=== PATIENT | female | born 1990 | race American Indian/Alaskan Native ===

== ENCOUNTER 2016-10-07 14:17 | Emergency (ER) | payer MEDICAID ==
--- NOTE | 2016-10-07 15:14 | Emergency Department Report ---
Entered by SYDNEE FISCHER, acting as scribe for GUSTABO OROZCO NP. Chief Complaint: Abdominal Pain Stated Complaint: 5 WKS PREG BLEEDING/CRAMPING/ABD PAIN Time Seen by Provider: 10/07/16 15:03 - HPI History of Present Illness: Pt that is c/o intermittent vaginal bleeding and LLQ and RLQ abdominal cramping pain for 2 days, worse today. Visited OB yesterday and was told she was on the verge of a miscarriage. She was told to go back for a possible DNC. Denies receiving an ultrasound. Reports intermittent rectal pain. Reports nausea and vomiting. LMP 08/31/2016 A0 - ROS Review of Systems: All system are negative unless stated in HPI above. - Exam Vital Signs: Vital Signs 10/07/16 14:53 Temperature 98.4 F Pulse Rate 75 Respiratory 16 Rate Blood Pressure 133/70 O2 Sat by Pulse 100 Oximetry Physical Exam: General: well nourished, well developed, 26 year old female in no acute distress and nontoxic in appearance Abdomen: soft, non-distended. Tender to LLQ and RLQ. Back: bilateral CVA tenderness MSE screening note: Focused history and physical exam performed. Due to findings the following was ordered: See above. ED Medical Decision Making - Medical Decision Making Patient screened by provider in triage area. Labs sent in for patient. Patient to be seen by MD on main ED side. ED Disposition for MSE Condition: Stable Instructions: Abdominal Pain (ED) This documentation as recorded by the scribe,SYDNEE FISCHER,accurately reflects the service I personally performed and the decisions made by me, GUSTABO OROZCO NP.
[2016-10-07 15:38] LABS: Basophils % (Auto) 0.3 % (0.0-1.8); Eosinophils % (Auto) 1.7 % (0.0-4.3); Hematocrit 36.3 % (30.3-42.9); Hemoglobin 11.6 gm/dl (10.1-14.3); Mean Corpuscular HGB Conc 32 % (30-34); Mean Corpuscular Hemoglobin 28 pg (28-32); Mean Corpuscular Volume 87 fl (79-97); Platelet Count 237 K/mm3 (140-440); Red Blood Count 4.16 M/mm3 (3.65-5.03); Red Cell Distribution Width 15.5 % (13.2-15.2); White Blood Count 6.7 K/mm3 (4.5-11.0)
[2016-10-07 15:46] LABS: Alanine Aminotransferase 10 units/L (7-56); Albumin 4.3 g/dL (3.9-5); Albumin/Globulin Ratio 1.5 %; Alkaline Phosphatase 58 units/L (35-129); Anion Gap 18 mmol/L; BUN/Creatinine Ratio 8.33; Blood Urea Nitrogen 5 mg/dL (7-17); Calcium 9.2 mg/dL (8.4-10.2); Carbon Dioxide 22 mmol/L (22-30); Chloride 101.1 mmol/L (98-107); Glucose 85 mg/dL (65-100); Potassium 4.1 mmol/L (3.6-5.0); Sodium 137 mmol/L (137-145); Total Protein 7.2 g/dL (6.3-8.2)
[2016-10-07 16:18] LABS: Bilirubin,Urine NEG (Negative); Blood,Urine LG (Negative); Ketones,Urine 80 mg/dL (Negative); Leukocyte Esterase,Urine LG (Negative); Mucus,Urine FEW /HPF; Nitrite,Urine NEG (Negative); Protein,Urine <15 mg/dL mg/dL (Negative); Urobilinogen,Urine < 2.0 mg/dL (<2.0)
--- NOTE | 2016-10-07 17:54 | Ultrasound Report ---
FINAL REPORT PROCEDURE: US OB TRANSVAGINAL TECHNIQUE: Real-time transabdominal and transvaginal sonography of the uterus, placenta, amniotic fluid, adnexa, and fetus was performed with image documentation. Measurements were obtained to determine age/size. M-mode Doppler was used to document heartbeat. CPT 07686 and 10352 HISTORY: vaginal bleeding , pos home preg COMPARISON: No prior studies are available for comparison. FINDINGS: There are 3 gestational sacs within the endometrial canal, each with a yolk sac. No poles are seen. Mean sac diameter A equals 7 millimeters corresponding to 5 weeks 3 days gestational age. Mean sac diameter B equals 1.1 cm corresponding to 5 weeks 6 days gestational age. Mean sac diameter C equals 1 cm corresponding to 5 weeks 6 days gestational age. Endocervical canal appears thickened measuring 1.2 cm in diameter with possible hemorrhage or gestational products. There is free fluid with debris in the cul-de-sac and right adnexa. Right ovary measures 4.4 x 2.4 x 3.7 cm. Left ovary measures 2.4 x 1.4 x 4.0 cm.. Normal Doppler flow is seen in the ovaries. No adnexal masses are seen. IMPRESSION: 1. Triplet is seen but poles are not yet visualized. Estimated gestational age is between 5 weeks 3 days and 5 weeks 6 days. 2. EDC by US June 03, 2017 based upon the larger gestational sacs. 3. Continued followup quantitative beta HCG levels are recommended and repeat ultrasound in 5-7 days time is suggested to evaluate for viability.
--- NOTE | 2016-10-07 17:54 | Ultrasound Report ---
FINAL REPORT PROCEDURE: US OB \T\lt; = 14 WEEKS FETUS TECHNIQUE: Real-time transabdominal and transvaginal sonography of the uterus, placenta, amniotic fluid, adnexa, and fetus was performed with image documentation. Measurements were obtained to determine age/size. M-mode Doppler was used to document heartbeat. CPT 63117 and 13948 HISTORY: vaginal bleeding pos preg COMPARISON: No prior studies are available for comparison. FINDINGS: There are 3 gestational sacs within the endometrial canal, each with a yolk sac. No poles are seen. Mean sac diameter A equals 7 millimeters corresponding to 5 weeks 3 days gestational age. Mean sac diameter B equals 1.1 cm corresponding to 5 weeks 6 days gestational age. Mean sac diameter C equals 1 cm corresponding to 5 weeks 6 days gestational age. Endocervical canal appears thickened measuring 1.2 cm in diameter with possible hemorrhage or gestational products. There is free fluid with debris in the cul-de-sac and right adnexa. Right ovary measures 4.4 x 2.4 x 3.7 cm. Left ovary measures 2.4 x 1.4 x 4.0 cm.. Normal Doppler flow is seen in the ovaries. No adnexal masses are seen. IMPRESSION: 1. Triplet is seen but poles are not yet visualized. Estimated gestational age is between 5 weeks 3 days and 5 weeks 6 days. 2. EDC by US June 03, 2017 based upon the larger gestational sacs. 3. Continued followup quantitative beta HCG levels are recommended and repeat ultrasound in 5-7 days time is suggested to evaluate for viability.
[2016-10-07] MEDS ORDERED: TYLENOL PO ONE (23:44)
[2016-10-07] MEDS ORDERED: MACROBID PO ONE (23:44)
--- NOTE | 2016-10-08 01:05 | Emergency Department Report ---
HPI - General Chief Complaint: Abdominal Pain Time Seen by Provider: 10/07/16 15:11 - HPI HPI: This is a 26-year-old female presents emergency Department with a 1.5 week history of intermittent pelvic cramping and vaginal bleeding while . The patient had a positive home test and then went into her [facility] service at [facility] and had a confirmation positive urine test. They said she was too early for a any type of ultrasound at that time. However the patient says that the bleeding has increased over the past few days so she presents here for further evaluation. She has not taken anything for symptoms prior to presentation. With this she is . She is not currently taking vitamins. She denies any fever, nausea, discharge, dysuria. ED Past Medical Hx - Past Medical History Hx Hypertension: No Hx Congestive Heart Failure: No Hx Diabetes: No Hx Deep Vein Thrombosis: No Hx Renal Disease: No Hx Sickle Cell Disease: No Hx Headaches / Migraines: Yes Hx Seizures: No Hx Asthma: No Hx COPD: No Hx HIV: No Additional medical history: blood transfusion/anemia - Social History Smoking Status: Never Smoker Substance Use Type: None - Medications Home Medications: Home Medications Medication Instructions Recorded Confirmed Last Taken Type Pnv#21/Iron Ps& Heme Polyp/FA 1 each PO QDAY #30 tablet 02/02/14 09/21/14 17:00 Rx [Prefera Ob Tablet] 1 tab Bisacodyl [Dulcolax tab] 1 tab PO DAILY 09/21/14 09/21/14 09/19/14 23:00 History 1 tab Calcium Carbonate [Tums] 200 mg PO Q12H PRN 09/21/14 09/21/14 09/19/14 23:30 History 1 tab Ferrous Sulfate [Iron Supplement] 1 tab PO DAILY 09/21/14 09/21/14 09/14/14 09: 00 History Phenylephrine/Dm/Acetaminop/GG 1 tab PO Q4H PRN 09/21/14 09/21/14 09/20/14 19: 00 History [Tylenol Cold & Flu Severe Cplt] 1 tab Ibuprofen [Motrin 800 MG tab] 800 mg PO Q8HR PRN #30 tablet 05/14/15 Unknown Rx Nitrofurantoin Beadle/M-Cryst 100 mg PO Q12HR #14 capsule 10/08/16 Unknown Rx [Macrobid CAP] Ondansetron [Zofran Odt] 4 mg PO Q8HR PRN #10 tab.rapdis 10/08/16 Unknown Rx Vit-Fe Fumar-FA [ 1 tab PO QDAY #30 tablet 10/08/16 Unknown Rx Vitamin] ED Review of Systems ROS: Stated complaint: 5 WKS PREG BLEEDING/CRAMPING/ABD PAIN Other details as noted in HPI Comment: All other systems reviewed and negative Constitutional: denies: chills, fever Eyes: denies: eye pain, eye discharge, vision change ENT: denies: ear pain, throat pain Respiratory: denies: cough, shortness of breath, wheezing Cardiovascular: denies: chest pain, palpitations Gastrointestinal: abdominal pain. denies: nausea, vomiting Genitourinary: other (vaginal bleeding). denies: urgency, dysuria, discharge Musculoskeletal: denies: back pain, joint swelling, arthralgia Skin: denies: rash, lesions Neurological: denies: headache, weakness, paresthesias Physical Exam - Physical Exam Vital Signs: Vital Signs 10/07/16 14:53 Temperature 98.4 F Pulse Rate 75 Respiratory 16 Rate Blood Pressure 133/70 O2 Sat by Pulse 100 Oximetry Physical Exam: GENERAL: The patient is well-developed well-nourished. HEENT: Normocephalic. Atraumatic. Extraocular motions are intact. Patient has moist mucous membranes. Pupils equal reactive to light bilaterally. NECK: Supple. Trachea is midline. CHEST/LUNGS: Clear to auscultation. There is no respiratory distress noted. HEART/CARDIOVASCULAR: Regular. There is no tachycardia. There is no gallop rub or murmur. ABDOMEN: Abdomen is soft, nontender. Patient has normal bowel sounds. There is no abdominal distention. SKIN: Skin is warm and dry. NEURO: The patient is awake, alert, and oriented. The patient is cooperative. The patient has no focal neurologic deficits. The patient has normal speech. MUSCULOSKELETAL: There is no tenderness or deformity. There is no limitation range of motion. There is no evidence of acute injury. ED Course Vital Signs 10/07/16 14:53 Temperature 98.4 F Pulse Rate 75 Respiratory 16 Rate Blood Pressure 133/70 O2 Sat by Pulse 100 Oximetry ED Medical Decision Making - Lab Data Result diagrams: 10/07/16 15:18 10/07/16 15:18 - Radiology Data Radiology results: report reviewed PROCEDURE: US OB T lt; = 14 WEEKS FETUS TECHNIQUE: Real-time transabdominal and transvaginal sonography of the uterus, placenta, amniotic fluid, adnexa, and fetus was performed with image documentation. Measurements were obtained to determine age/size. M-mode Doppler was used to document heartbeat. CPT 62183 and 19428 HISTORY: vaginal bleeding pos preg COMPARISON: No prior studies are available for comparison. FINDINGS: There are 3 gestational sacs within the endometrial canal, each with a yolk sac. No poles are seen. Mean sac diameter A equals 7 millimeters corresponding to 5 weeks 3 days gestational age. Mean sac diameter B equals 1.1 cm corresponding to 5 weeks 6 days gestational age. Mean sac diameter C equals 1 cm corresponding to 5 weeks 6 days gestational age. Endocervical canal appears thickened measuring 1.2 cm in diameter with possible hemorrhage or gestational products. There is free fluid with debris in the cul-de-sac and right adnexa. Right ovary measures 4.4 x 2.4 x 3.7 cm. Left ovary measures 2.4 x 1.4 x 4.0 cm.. Normal Doppler flow is seen in the ovaries. No adnexal masses are seen. IMPRESSION: 1. Triplet is seen but poles are not yet visualized. Estimated gestational age is between 5 weeks 3 days and 5 weeks 6 days. 2. EDC by US June 03, 2017 based upon the larger gestational sacs. 3. Continued followup quantitative beta HCG levels are recommended and repeat ultrasound in 5-7 days time is suggested to evaluate for viability. - Medical Decision Making 26 year old female presents to the emergency department with complaint of some vaginal bleeding/spotting and some abdominal cramping while . Patient' s labs are mostly unremarkable. She has a mild urinary tract infection that was treated with Macrobid. A ultrasound was done that shows triplet intrauterine gestation with gestational sacs and yolk sacs but no pole as of yet. It appears consistent with early at about 5 weeks and a few days. The hormone was checked and it is about 30,000. I spoke to the patient in great detail about her imaging results, the diagnosis of threatened miscarriage, and the importance of following up with her [facility] in 4- 5 days for a repeat hormone level and repeat ultrasound to better assess the viability of her . She was started on vitamins and given Macrobid for urinary tract infection. The patient wanted something for nausea and says that diclegis does not work. She asked for Zofran. I told her of the very small percent chance of it causing side effects but the patient says that she is willing to take the risk and would like that medication. Urinalysis did show 80 ketones in the urine but there was no renal insufficiency. She will increase her oral rehydration. She will return to the ER with any worsening of her symptoms or any acute distress. She understands and agrees to plan. - Differential Diagnosis , threatened miscarriage, spontaneous miscarriage, fibroids, UTI Critical Care Time: No Critical care attestation.: If time is entered above; I have spent that time in minutes in the direct care of this critically ill patient, excluding procedure time. ED Disposition Clinical Impression: Threatened Qualifiers: Weeks of gestation: less than 8 weeks Qualified Code(s): Z3A.01 - Less than 8 weeks gestation of UTI (urinary tract infection) Qualifiers: Urinary tract infection type: acute cystitis Hematuria presence: without hematuria Qualified Code(s): N30.00 - Acute cystitis without hematuria Triplet gestation Qualifiers: Multiple gestation type: unspecified Trimester: first trimester Qualified Code( s): O30.101 - Triplet , unspecified number of placenta and unspecified number of amniotic sacs, first trimester Disposition: DC-01 TO HOME OR SELFCARE Is pt being admited?: No Condition: Stable Instructions: Threatened Miscarriage (ED), (ED), Urinary Tract Infection in Women (ED) Additional Instructions: Please follow up with [facility] in a few days for a repeat hormone level and repeat ultrasound to continue evaluating the viability of her . Until that time, you need to have pelvic rest. Try not to exert herself and do not lift anything heavier than 10 pounds. You can take Tylenol every 4 hours, using weight-based dosing, as needed for discomfort. I have prescribed you vitamins as well as an antibiotics for your urinary tract infection. Otherwise do not take any medications that are not prescribed by a physician. Prescriptions: Nitrofurantoin Beadle/M-Cryst [Macrobid CAP] 100 mg PO Q12HR #14 capsule Ondansetron [Zofran Odt] 4 mg PO Q8HR PRN #10 tab.rapdis PRN Reason: Nausea Vit-Fe Fumar-FA [ Vitamin] 1 tab PO QDAY #30 tablet Referrals: [facility] [Provider Group] - 3-5 Days Time of Disposition: 01:16
[2016-10-08] MEDS ORDERED: MACROBID ONE (01:52)
[2016-10-08] MEDS ORDERED: TYLENOL ONE (01:53)
[2016-10-08 02:04] VITALS: BP 135/74
== END 2016-10-08 02:07 | disposition home or self-care (01) ==
LOC: ED 14:17
DX: O20.0 Threatened abortion (principal); O23.41 Unspecified infection of urinary tract in pregnancy, first trimester; O30.101 Triplet pregnancy, unspecified number of placenta and unspecified number of amniotic sacs, first trimester; G43.909 Migraine, unspecified, not intractable, without status migrainosus; Z3A.01 Less than 8 weeks gestation of pregnancy
CPT/HCPCS: 36415; 76801; 76802; 76817; 80053; 81001; 84702; 84703; 85025; 86900; 86901

== ENCOUNTER 2017-07-14 14:43 | Emergency (ER) | payer SELFPAY ==
[2017-07-14 14:54] VITALS: BP 115/66
[2017-07-14] MEDS ORDERED: ASPIRIN PO ONE (14:54)
[2017-07-14 15:11] LABS: Basophils % (Auto) 0.2 % (0.0-1.8); Eosinophils # (Auto) 0.1 K/mm3 (0.0-0.4); Eosinophils % (Auto) 1.8 % (0.0-4.3); Hematocrit 33.2 % (30.3-42.9); Hemoglobin 10.8 gm/dl (10.1-14.3); Lymphocytes # (Auto) 1.9 K/mm3 (1.2-5.4); Lymphocytes % (Auto) 25.4 % (13.4-35.0); Mean Corpuscular HGB Conc 33 % (30-34); Mean Corpuscular Hemoglobin 28 pg (28-32); Mean Corpuscular Volume 87 fl (79-97); Monocytes # (Auto) 0.4 K/mm3 (0.0-0.8); Monocytes % (Auto) 5.2 % (0.0-7.3); Platelet Count 263 K/mm3 (140-440); Red Blood Count 3.83 M/mm3 (3.65-5.03); Red Cell Distribution Width 14.8 % (13.2-15.2)
[2017-07-14 15:21] LABS: BUN/Creatinine Ratio 11; Blood Urea Nitrogen 8 mg/dL (7-17); Calcium 8.6 mg/dL (8.4-10.2); Hemolysis Index 26
== END 2017-07-14 20:27 | disposition left against medical advice (07) ==
LOC: ED 14:43
DX: R06.02 Shortness of breath (principal); R07.9 Chest pain, unspecified; Z53.21 Procedure and treatment not carried out due to patient leaving prior to being seen by health care provider
CPT/HCPCS: 36415; 80048; 84484; 85025; 93005; 93010

== ENCOUNTER 2018-11-09 09:00 | Emergency (ER) | payer OTHER ==
[2018-11-09] MEDS ORDERED: BABY ASPIRIN PO ONE (09:18)
--- NOTE | 2018-11-09 09:48 | Emergency Department Report ---
ED General Adult HPI - General Chief complaint: Chest Pain Stated complaint: CHEST PAIN Time Seen by Provider: 11/09/18 09:12 Source: patient Mode of arrival: Ambulatory Limitations: No Limitations - History of Present Illness Initial comments: The patient presents to the emergency department with a chief complaint of right-sided chest pain that started yesterday. Patient states she is also having a difficult time catching her breath. Patient denies any recent trauma or injury. Patient denies smoking or use of control pills. -: Sudden Location: chest Severity scale (0 -10): 5 Quality: sharp Consistency: constant Improves with: rest Worsens with: movement Associated Symptoms: denies other symptoms Treatments Prior to Arrival: none - Related Data Home Medications Medication Instructions Recorded Confirmed Last Taken Bisacodyl [Dulcolax tab] 1 tab PO DAILY 09/21/14 09/21/14 09/19/14 23:00 1 tab Calcium Carbonate [Tums] 200 mg PO Q12H PRN 09/21/14 09/21/14 09/19/14 23:30 1 tab Ferrous Sulfate [Iron Supplement] 1 tab PO DAILY 09/21/14 09/21/14 09/14/14 09:00 Phenylephrine/Dm/Acetaminop/GG 1 tab PO Q4H PRN 09/21/14 09/21/14 09/20/14 19:00 [Tylenol Cold & Flu Severe Cplt] 1 tab Previous Rx's Medication Instructions Recorded Last Taken Type Pnv 21/Iron Ps,Heme Ppep/Folic 1 each PO QDAY #30 tablet 02/02/14 09/20/14 17:00 Rx [Prefera Ob Tablet] 1 tab Ibuprofen [Motrin 800 MG tab] 800 mg PO Q8HR PRN #30 tablet 05/14/15 Unknown Rx Nitrofurantoin Dawson/M-Cryst 100 mg PO Q12HR #14 capsule 10/08/16 Unknown Rx [Macrobid CAP] Ondansetron [Zofran Odt] 4 mg PO Q8HR PRN #10 tab.rapdis 10/08/16 Unknown Rx Vit-Fe Fumar-FA [ 1 tab PO QDAY #30 tablet 10/08/16 Unknown Rx Vitamin] Naproxen [Naprosyn] 500 mg PO BID PRN #20 tablet 11/09/18 Unknown Rx Allergies Allergy/AdvReac Type Severity Reaction Status Date / Time No Known Allergies Allergy Verified 11/09/18 09:00 ED Review of Systems ROS: Stated complaint: CHEST PAIN Other details as noted in HPI Comment: All other systems reviewed and negative Constitutional: denies: chills, fever Eyes: denies: eye pain, eye discharge, vision change ENT: denies: ear pain, throat pain Respiratory: shortness of breath. denies: cough, wheezing Cardiovascular: chest pain. denies: palpitations Endocrine: no symptoms reported Gastrointestinal: denies: abdominal pain, nausea, diarrhea Genitourinary: denies: urgency, dysuria, discharge Musculoskeletal: denies: back pain, joint swelling, arthralgia Skin: denies: rash, lesions Neurological: denies: headache, weakness, paresthesias Psychiatric: denies: anxiety, depression Hematological/Lymphatic: denies: easy bleeding, easy bruising ED Past Medical Hx - Past Medical History Hx Hypertension: No Hx Congestive Heart Failure: No Hx Diabetes: No Hx Deep Vein Thrombosis: No Hx Renal Disease: No Hx Sickle Cell Disease: No Hx Headaches / Migraines: Yes Hx Seizures: No Hx Asthma: No Hx COPD: No Hx HIV: No Additional medical history: iron def, anemia - Surgical History Past Surgical History?: No - Social History Smoking Status: Never Smoker - Medications Home Medications: Home Medications Medication Instructions Recorded Confirmed Last Taken Type Pnv 21/Iron Ps,Heme Ppep/Folic 1 each PO QDAY #30 tablet 02/02/14 09/21/14 09/20/14 17:00 Rx [Prefera Ob Tablet] 1 tab Bisacodyl [Dulcolax tab] 1 tab PO DAILY 09/21/14 09/21/14 09/19/14 23:00 History 1 tab Calcium Carbonate [Tums] 200 mg PO Q12H PRN 09/21/14 09/21/14 09/19/14 23:30 History 1 tab Ferrous Sulfate [Iron Supplement] 1 tab PO DAILY 09/21/14 09/21/14 09/14/14 09:00 History Phenylephrine/Dm/Acetaminop/GG 1 tab PO Q4H PRN 09/21/14 09/21/14 09/20/14 19:00 History [Tylenol Cold & Flu Severe Cplt] 1 tab Ibuprofen [Motrin 800 MG tab] 800 mg PO Q8HR PRN #30 tablet 05/14/15 Unknown Rx Nitrofurantoin Dawson/M-Cryst 100 mg PO Q12HR #14 capsule 10/08/16 Unknown Rx [Macrobid CAP] Ondansetron [Zofran Odt] 4 mg PO Q8HR PRN #10 tab.rapdis 10/08/16 Unknown Rx Vit-Fe Fumar-FA [ 1 tab PO QDAY #30 tablet 10/08/16 Unknown Rx Vitamin] Naproxen [Naprosyn] 500 mg PO BID PRN #20 tablet 11/09/18 Unknown Rx ED Physical Exam - General Limitations: No Limitations General appearance: alert, in no apparent distress - Head Head exam: Present: atraumatic, normocephalic - Eye Eye exam: Present: normal appearance, PERRL, EOMI - ENT ENT exam: Present: mucous membranes moist - Neck Neck exam: Present: normal inspection - Respiratory Respiratory exam: Present: normal lung sounds bilaterally, chest wall tenderness (right side). Absent: respiratory distress - Cardiovascular Cardiovascular Exam: Present: regular rate, normal rhythm. Absent: systolic murmur, diastolic murmur, rubs, gallop - GI/Abdominal GI/Abdominal exam: Present: soft, normal bowel sounds. Absent: distended, tenderness - Extremities Exam Extremities exam: Present: normal inspection - Back Exam Back exam: Present: normal inspection - Neurological Exam Neurological exam: Present: alert, oriented X3, CN II-XII intact. Absent: motor sensory deficit - Psychiatric Psychiatric exam: Present: normal affect, normal mood - Skin Skin exam: Present: warm, dry, intact, normal color. Absent: rash ED Course Vital Signs 11/09/18 11/09/18 11/09/18 09:01 09:20 10:45 Temperature 98.1 F Pulse Rate 70 73 Respiratory 18 16 13 Rate Blood Pressure 162/83 Blood Pressure 122/74 [Left] O2 Sat by Pulse 100 100 Oximetry ED Medical Decision Making - Lab Data Result diagrams: 11/09/18 09:30 11/09/18 09:30 Lab Results 11/09/18 11/09/18 11/09/18 Range/Units 09:30 09:30 09:30 WBC 6.3 (4.5-11.0) K/mm3 RBC 4.10 (3.65-5.03) M/mm3 Hgb 11.9 (10.1-14.3) gm/dl Hct 35.2 (30.3-42.9) % MCV 86 (79-97) fl MCH 29 (28-32) pg MCHC 34 (30-34) % RDW 14.5 (13.2-15.2) % Plt Count 269 (140-440) K/mm3 Lymph % (Auto) 27.3 (13.4-35.0) % Dawson % (Auto) 5.3 (0.0-7.3) % Eos % (Auto) 1.6 (0.0-4.3) % Baso % (Auto) 0.7 (0.0-1.8) % Lymph # 1.7 (1.2-5.4) K/mm3 Dawson # 0.3 (0.0-0.8) K/mm3 Eos # 0.1 (0.0-0.4) K/mm3 Baso # 0.0 (0.0-0.1) K/mm3 Seg Neutrophils % 65.1 (40.0-70.0) % Seg Neutrophils # 4.1 (1.8-7.7) K/mm3 PT 12.7 (12.2-14.9) Sec. INR 0.98 (0.87-1.13) APTT 29.4 (24.2-36.6) Sec. D-Dimer < 135.00 (0-234) ng/mlDDU Sodium (137-145) mmol/L Potassium (3.6-5.0) mmol/L Chloride (98-107) mmol/L Carbon Dioxide (22-30) mmol/L Anion Gap mmol/L BUN (7-17) mg/dL Creatinine (0.7-1.2) mg/dL Estimated GFR ml/min BUN/Creatinine Ratio % Glucose (65-100) mg/dL Calcium (8.4-10.2) mg/dL Total Bilirubin (0.1-1.2) mg/dL AST (5-40) units/L ALT (7-56) units/L Alkaline Phosphatase (35-129) units/L Troponin T (0.00-0.029) ng/mL Total Protein (6.3-8.2) g/dL Albumin (3.9-5) g/dL Albumin/Globulin Ratio % HCG, Qual Negative (Negative) 11/09/18 11/09/18 Range/Units 09:30 11:21 WBC (4.5-11.0) K/mm3 RBC (3.65-5.03) M/mm3 Hgb (10.1-14.3) gm/dl Hct (30.3-42.9) % MCV (79-97) fl MCH (28-32) pg MCHC (30-34) % RDW (13.2-15.2) % Plt Count (140-440) K/mm3 Lymph % (Auto) (13.4-35.0) % Dawson % (Auto) (0.0-7.3) % Eos % (Auto) (0.0-4.3) % Baso % (Auto) (0.0-1.8) % Lymph # (1.2-5.4) K/mm3 Dawson # (0.0-0.8) K/mm3 Eos # (0.0-0.4) K/mm3 Baso # (0.0-0.1) K/mm3 Seg Neutrophils % (40.0-70.0) % Seg Neutrophils # (1.8-7.7) K/mm3 PT (12.2-14.9) Sec. INR (0.87-1.13) APTT (24.2-36.6) Sec. D-Dimer (0-234) ng/mlDDU Sodium 138 (137-145) mmol/L Potassium 3.6 (3.6-5.0) mmol/L Chloride 102.9 (98-107) mmol/L Carbon Dioxide 22 (22-30) mmol/L Anion Gap 17 mmol/L BUN 7 (7-17) mg/dL Creatinine 0.8 (0.7-1.2) mg/dL Estimated GFR > 60 ml/min BUN/Creatinine Ratio 9 % Glucose 79 (65-100) mg/dL Calcium 9.8 (8.4-10.2) mg/dL Total Bilirubin 0.40 (0.1-1.2) mg/dL AST 34 (5-40) units/L ALT 24 (7-56) units/L Alkaline Phosphatase 92 (35-129) units/L Troponin T < 0.010 < 0.010 (0.00-0.029) ng/mL Total Protein 8.4 H (6.3-8.2) g/dL Albumin 4.4 (3.9-5) g/dL Albumin/Globulin Ratio 1.1 % HCG, Qual (Negative) - EKG Data -: EKG Interpreted by Me EKG shows normal: sinus rhythm Rate: normal - Radiology Data Radiology results: report reviewed - Medical Decision Making Discussed results with patient Patient states her symptoms completely resolved with naproxen Critical care attestation.: If time is entered above; I have spent that time in minutes in the direct care of this critically ill patient, excluding procedure time. ED Disposition Clinical Impression: Nonspecific chest pain Disposition: DC-01 TO HOME OR SELFCARE Is pt being admited?: No Does the pt Need Aspirin: No Condition: Stable Instructions: Noncardiac Chest Pain (ED) Additional Instructions: return if worse Referrals: PRIMARY CARE, [Referring] - 3-5 Days [facility] [Provider Group] - 3-5 Days [facility] [Provider Group] - 3-5 Days Time of Disposition: 12:08
[2018-11-09] MEDS ORDERED: NAPROSYN PO ONE (10:00)
--- NOTE | 2018-11-09 10:04 | XRay Report ---
CHEST 1 VIEW INDICATION: Chest Pain. COMPARISON: FINDINGS: Support devices: None. Heart: Within normal limits. Lungs/Pleura: No acute air space or interstitial disease. Additional findings: None. IMPRESSION: No acute findings. Signer Name: Omar Blevins Jr, MD Signed: 11/09/2018 9:59 AM Workstation Name: [id number]
[2018-11-09 10:07] LABS: Basophils % (Auto) 0.7 % (0.0-1.8); Eosinophils # (Auto) 0.1 K/mm3 (0.0-0.4); Eosinophils % (Auto) 1.6 % (0.0-4.3); Hematocrit 35.2 % (30.3-42.9); Hemoglobin 11.9 gm/dl (10.1-14.3); Lymphocytes # (Auto) 1.7 K/mm3 (1.2-5.4); Lymphocytes % (Auto) 27.3 % (13.4-35.0); Mean Corpuscular HGB Conc 34 % (30-34); Mean Corpuscular Volume 86 fl (79-97); Monocytes # (Auto) 0.3 K/mm3 (0.0-0.8); Monocytes % (Auto) 5.3 % (0.0-7.3); Platelet Count 269 K/mm3 (140-440); Red Cell Distribution Width 14.5 % (13.2-15.2)
[2018-11-09 10:22] LABS: INR 0.98 (0.87-1.13)
[2018-11-09 10:23] LABS: Partial Thromboplastin Time 29.4 Sec. (24.2-36.6)
[2018-11-09 10:25] LABS: Alanine Aminotransferase 24 units/L (7-56); Albumin 4.4 g/dL (3.9-5); BUN/Creatinine Ratio 9; Blood Urea Nitrogen 7 mg/dL (7-17); Calcium 9.8 mg/dL (8.4-10.2); Hemolysis Index 12
[2018-11-09 12:23] VITALS: BP 120/71
== END 2018-11-09 12:22 | disposition home or self-care (01) ==
LOC: ED 09:00
DX: R07.89 Other chest pain (principal); R06.02 Shortness of breath; G43.909 Migraine, unspecified, not intractable, without status migrainosus; Z79.899 Other long term (current) drug therapy
CPT/HCPCS: 36415; 71045; 80053; 80162; 84484; 84703; 85025; 85379; 85610; 85730; 93005; 93010

== ENCOUNTER 2020-07-14 16:10 | Inpatient (IN) | payer MEDICAID ==
[2020-07-14] MEDS ORDERED: LACTATED RINGERS 1,000 ML IV ONE (16:31)
[2020-07-14] MEDS ORDERED: TERBUTALINE 1 MG/1 ML INJ SUB-Q SCH (17:00)
[2020-07-14 17:12] LABS: Bilirubin,Urine NEG (Negative); Blood,Urine NEG (Negative); Color,Urine Yellow (Yellow); Mucus,Urine 3+ /HPF; Urobilinogen,Urine < 2.0 mg/dL (<2.0)
[2020-07-14] MEDS: LACTATED RINGERS 1,000 ML IV SCH ×2 (17:22→19:04)
[2020-07-14 17:41] LABS: Hemoglobin 8.6 gm/dl (10.1-14.3); Mean Corpuscular HGB Conc 32 % (30-34); Mean Corpuscular Volume 72 fl (79-97); Platelet Count 300 K/mm3 (140-440); Red Blood Count 3.76 M/mm3 (3.65-5.03); Red Cell Distribution Width 18.2 % (13.2-15.2)
[2020-07-14 18:01] LABS: Alanine Aminotransferase 8 units/L (7-56); Uric Acid 4.9 mg/dL (3.5-7.6)
[2020-07-14] MEDS ORDERED: DOCUSATE SODIUM 100 MG CAP PO PRN (19:58)
[2020-07-14] MEDS ORDERED: ACETAMINOPHEN 325 MG TAB PO PRN (19:58)
[2020-07-14] MEDS ORDERED: ONDANSETRON 4 MG/2 ML INJ IV PRN (19:58)
[2020-07-14] MEDS ORDERED: LIDOCAINE-MPF (1%) 10 MG/1 ML VIAL 5 ML INFILTRATI ONE (20:02)
[2020-07-14] MEDS ORDERED: cefTRIAXone/NS 1 GM/50 ML 1 GM/50 ML BAG IV ONE (20:05)
[2020-07-14] MEDS ORDERED: SODIUM CHLORIDE 0.9% 1000 ML 1,000 ML IV PRN (20:06)
--- NOTE | 2020-07-14 20:09 | History and Physical Report ---
History of Present Illness Date of examination: 07/14/20 Chief complaint: r/o labor, elevated blood pressures History of present illness: 29 yo c/b anemia and obesity presenting from clinic for evaluation of r/o labor with contractions every 7 minutes, found to have elevated BPs in cl inic. No prior hx of PIH. No current PIH symptoms. +FM. No vaginal bleeding or LOF. 2/60/-2 cm in clinic Past History Past Medical History: other (anemia) Past Surgical History: no surgical history Family/Genetic History: diabetes, heart disease Social history: no significant social history - Obstetrical History : 5 Para: 3 Hx # Term Pregnancies: 3 Induced : 1 Number of Living Children: 3 Medications and Allergies Allergies Allergy/AdvReac Type Severity Reaction Status Date / Time No Known Allergies Allergy Verified 11/09/18 09:00 Home Medications Medication Instructions Recorded Confirmed Last Taken Type Pnv 21/Iron Ps,Heme Ppep/Folic 1 each PO QDAY #30 tablet 02/02/14 09/21/14 09/20/14 17:00 Rx [Prefera Ob Tablet] 1 tab Calcium Carbonate [Tums] 200 mg PO Q12H PRN 09/21/14 09/21/14 09/19/14 23:30 History 1 tab Ferrous Sulfate [Iron Supplement] 1 tab PO DAILY 09/21/14 09/21/14 09/14/14 09:00 History Phenylephrine/Dm/Acetaminop/GG 1 tab PO Q4H PRN 09/21/14 09/21/14 09/20/14 19:00 History [Tylenol Cold & Flu Severe Cplt] 1 tab bisacodyL [Dulcolax tab] 1 tab PO DAILY 09/21/14 09/21/14 09/19/14 23:00 History 1 tab Ibuprofen [Motrin 800 MG tab] 800 mg PO Q8HR PRN #30 tablet 05/14/15 Unknown Rx Nitrofurantoin Schleicher/M-Cryst 100 mg PO Q12HR #14 capsule 10/08/16 Unknown Rx [Macrobid CAP] Ondansetron [Zofran Odt] 4 mg PO Q8HR PRN #10 tab.rapdis 10/08/16 Unknown Rx Vit-Fe Fumar-FA [ 1 tab PO QDAY #30 tablet 10/08/16 Unknown Rx Vitamin] Naproxen [Naprosyn] 500 mg PO BID PRN #20 tablet 11/09/18 Unknown Rx Active Meds: Active Medications Acetaminophen (Acetaminophen 325 Mg Tab) 650 mg PO Q4H PRN PRN Reason: Pain MILD(1-3)/Fever >100.5/MURGUIA Ceftriaxone Sodium (Ceftriaxone 1 Gm Inj) 1 gm IM ONCE ONE; Protocol Stop: 07/14/20 20:04 Docusate Sodium (Docusate Sodium 100 Mg Cap) 100 mg PO Q12H PRN PRN Reason: Constipation Lactated Ringer's (Lactated Ringers) 1,000 mls @ 125 mls/hr IV DIRECT ANDRE Last Admin: 07/14/20 19:04 Dose: 125 mls/hr Documented by: Labetalol HCl (Labetalol 100 Mg Tab) 100 mg PO BID ANDRE Lidocaine (Lidocaine-Mpf (1%) 10 Mg/1 Ml Vial 5 Ml) 2 ml INFILTRATI ONCE ONE Stop: 07/14/20 20:03 Multivitamins/Iron/Calcium ( Rau22-Hf Fumarate-Folic Acid Vit Tab) 1 each PO QDAY [facility] Ondansetron HCl (Ondansetron 4 Mg/2 Ml Inj) 4 mg IV Q6H PRN PRN Reason: Nausea And Vomiting Terbutaline Sulfate (Terbutaline 1 Mg/1 Ml Inj) 0.25 mg SUB-Q Q20MIN [facility] Stop: 07/16/20 17:01 Last Admin: 07/14/20 19:40 Dose: 0.25 mg Documented by: Review of Systems All systems: negative (expect HPI) - Vital Signs Vital signs: Vital Signs Pulse BP 76 130/85 07/14/20 16:45 07/14/20 16:45 Temp Pulse Resp BP Pulse Ox 98.9 F 72 20 137/72 100 07/14/20 16:47 07/14/20 20:01 07/14/20 16:47 07/14/20 19:59 07/14/20 20:01 - Physical Exam Abdomen: Positive: normal appearance, normal bowel sounds, other (gravid) - Obstetrical FHR: category 1 Uterine Contraction Monitor Mode: External Cervical Dilatation: 2 Uterine Contraction Pattern: Irregular Results Result Diagrams: 07/14/20 Unknown 07/14/20 Unknown Abnormal lab results 07/14/20 07/14/20 07/14/20 Range/Units Unknown Unknown Unknown Hgb 8.6 L (10.1-14.3) gm/dl Hct 27.0 L (30.3-42.9) % MCV 72 L (79-97) fl MCH 23 L (28-32) pg RDW 18.2 H (13.2-15.2) % Lactate Dehydrogenase 271 H (91-180) units/L U Epithel Cells (Auto) 19.0 H (0-13.0) /HPF All other labs normal. Assessment and Plan - Patient Problems (1) Elevated blood pressure affecting in third trimester, antepartum Current Visit: Yes Status: Acute Plan to address problem: --PIH labs overall wnl, elevated but not severe range BPs --Admit for OBS for 24H TP --start labetolol 100mg BID (2) Anemia Current Visit: Yes Status: Acute Qualifiers: Anemia type: iron deficiency Plan to address problem: Iron BID (3) Cystitis Current Visit: Yes Status: Acute Plan to address problem: Ceftriaxone 1g IV x 1 for leuks in urine, current asx
[2020-07-14] MEDS ORDERED: CALCIUM CARBONATE 500 MG TAB CHEW PO PRN (21:07)
[2020-07-15] MEDS: LACTATED RINGERS 1,000 ML IV SCH (03:43)
[2020-07-15] MEDS: FERROUS SULFATE 325 MG TAB PO SCH ×2 (09:03→21:08)
--- NOTE | 2020-07-15 09:22 | Progress Note ---
Subjective - Subjective Date of service: 07/15/20 Objective - Vital Signs Vital Signs: Vital Signs - 12hr 07/14/20 07/14/20 07/15/20 23:31 23:50 00:20 Temperature Pulse Rate 73 83 74 Respiratory Rate Blood Pressure 126/73 139/81 144/66 Blood Pressure [Right] O2 Sat by Pulse Oximetry 07/15/20 07/15/20 07/15/20 00:50 01:21 01:50 Temperature Pulse Rate 62 74 59 L Respiratory Rate Blood Pressure 126/70 108/55 101/58 Blood Pressure [Right] O2 Sat by Pulse Oximetry 07/15/20 07/15/20 07/15/20 02:21 02:50 03:45 Temperature Pulse Rate 73 57 L 84 Respiratory Rate Blood Pressure 132/80 111/55 122/80 Blood Pressure [Right] O2 Sat by Pulse Oximetry 07/15/20 07/15/20 07/15/20 03:52 04:50 05:21 Temperature Pulse Rate 74 82 85 Respiratory Rate Blood Pressure 123/69 141/81 153/81 Blood Pressure [Right] O2 Sat by Pulse Oximetry 07/15/20 07/15/20 07/15/20 05:50 06:20 06:57 Temperature 98.3 F Pulse Rate 72 67 77 Respiratory 16 Rate Blood Pressure 125/76 117/69 138/80 Blood Pressure 138/80 [Right] O2 Sat by Pulse 99 Oximetry 07/15/20 07/15/20 07/15/20 07:00 07:05 07:10 Temperature Pulse Rate 76 63 72 Respiratory Rate Blood Pressure Blood Pressure [Right] O2 Sat by Pulse 98 98 98 Oximetry 07/15/20 07/15/20 07/15/20 07:15 07:20 07:25 Temperature Pulse Rate 68 64 92 H Respiratory Rate Blood Pressure 137/76 Blood Pressure [Right] O2 Sat by Pulse 99 99 99 Oximetry 07/15/20 07/15/20 07/15/20 07:30 07:35 07:40 Temperature Pulse Rate 85 76 68 Respiratory Rate Blood Pressure Blood Pressure [Right] O2 Sat by Pulse 98 99 100 Oximetry 07/15/20 07/15/20 07/15/20 07:45 07:50 07:51 Temperature Pulse Rate 63 71 78 Respiratory Rate Blood Pressure 136/83 Blood Pressure [Right] O2 Sat by Pulse 99 99 Oximetry 07/15/20 07/15/20 07/15/20 07:55 08:00 08:05 Temperature Pulse Rate 62 67 57 L Respiratory Rate Blood Pressure Blood Pressure [Right] O2 Sat by Pulse 99 99 98 Oximetry 07/15/20 07/15/20 07/15/20 08:10 08:15 08:20 Temperature Pulse Rate 74 61 64 Respiratory Rate Blood Pressure Blood Pressure [Right] O2 Sat by Pulse 98 99 99 Oximetry 07/15/20 07/15/20 07/15/20 08:21 08:25 08:30 Temperature Pulse Rate 64 61 65 Respiratory Rate Blood Pressure 121/58 Blood Pressure [Right] O2 Sat by Pulse 99 98 Oximetry 07/15/20 07/15/20 07/15/20 08:35 08:40 08:45 Temperature Pulse Rate 80 64 67 Respiratory Rate Blood Pressure Blood Pressure [Right] O2 Sat by Pulse 99 98 98 Oximetry 07/15/20 07/15/20 07/15/20 08:50 08:52 08:55 Temperature Pulse Rate 67 79 74 Respiratory Rate Blood Pressure 144/79 Blood Pressure [Right] O2 Sat by Pulse 98 97 Oximetry 07/15/20 07/15/20 07/15/20 09:00 09:04 09:05 Temperature Pulse Rate 89 64 90 Respiratory Rate Blood Pressure 131/62 131/62 Blood Pressure [Right] O2 Sat by Pulse 100 99 Oximetry 07/15/20 07/15/20 07/15/20 09:10 09:15 09:20 Temperature Pulse Rate 65 63 70 Respiratory Rate Blood Pressure Blood Pressure [Right] O2 Sat by Pulse 99 99 99 Oximetry - Labs Labs: Abnormal Labs 07/14/20 07/14/20 07/14/20 Unknown Unknown Unknown Hgb 8.6 L Hct 27.0 L MCV 72 L MCH 23 L RDW 18.2 H Lactate Dehydrogenase 271 H U Epithel Cells (Auto) 19.0 H Laboratory Results - last 24 hr 07/14/20 07/14/20 07/14/20 20:31 20:31 20:31 WBC RBC Hgb Hct MCV MCH MCHC RDW Plt Count Creatinine Estimated GFR Uric Acid AST ALT Lactate Dehydrogenase Urine Color Urine Turbidity Urine pH Ur Specific [place] Urine Protein Urine Glucose (UA) Urine Ketones Urine Blood Urine Nitrite Urine Bilirubin Urine Urobilinogen Ur Leukocyte Esterase Urine WBC (Auto) Urine RBC (Auto) U Epithel Cells (Auto) Urine Mucus Syphilis IgG Antibody Nonreactive Hep Bs Antigen HIV 1&2 Antibody Rapid HIV P24 Antigen Rubella IgG Antibody Immune Blood Type O POSITIVE Antibody Screen Negative 07/14/20 07/14/20 07/14/20 20:31 20:31 Unknown WBC RBC Hgb Hct MCV MCH MCHC RDW Plt Count Creatinine Estimated GFR Uric Acid AST ALT Lactate Dehydrogenase Urine Color Yellow Urine Turbidity Cloudy Urine pH 6.0 Ur Specific [place] 1.024 Urine Protein 100 mg/dl Urine Glucose (UA) Neg Urine Ketones Neg Urine Blood Neg Urine Nitrite Neg Urine Bilirubin Neg Urine Urobilinogen < 2.0 Ur Leukocyte Esterase Mod Urine WBC (Auto) 4.0 Urine RBC (Auto) 1.0 U Epithel Cells (Auto) 19.0 H Urine Mucus 3+ Syphilis IgG Antibody Hep Bs Antigen Non-reactive HIV 1&2 Antibody Rapid Non react HIV P24 Antigen Non react Rubella IgG Antibody Blood Type Antibody Screen 07/14/20 07/14/20 Unknown Unknown WBC 9.0 RBC 3.76 Hgb 8.6 L Hct 27.0 L MCV 72 L MCH 23 L MCHC 32 RDW 18.2 H Plt Count 300 Creatinine 0.7 Estimated GFR > 60 Uric Acid 4.9 AST 20 ALT 8 Lactate Dehydrogenase 271 H Urine Color Urine Turbidity Urine pH Ur Specific [place] Urine Protein Urine Glucose (UA) Urine Ketones Urine Blood Urine Nitrite Urine Bilirubin Urine Urobilinogen Ur Leukocyte Esterase Urine WBC (Auto) Urine RBC (Auto) U Epithel Cells (Auto) Urine Mucus Syphilis IgG Antibody Hep Bs Antigen HIV 1&2 Antibody Rapid HIV P24 Antigen Rubella IgG Antibody Blood Type Antibody Screen
--- NOTE | 2020-07-15 09:48 | Progress Note ---
Assessment and Plan A: IUP@ 35.5wks with PIH Asymptomatic anemia Mod leuk in urine P: Continue monitoring b/ps [facility] consult Continue 24 hr urine jana Awaiting urine c&s Ferrous Sulfate rx Subjective - Subjective Date of service: 07/15/20 Principal diagnosis: IUP@ 35.5 wks with PIH Patient reports: movement normal, other (Denies grigsby, visual problems, or epigastric pain) Objective - Vital Signs Vital Signs: Vital Signs - 12hr 07/14/20 07/14/20 07/15/20 23:31 23:50 00:20 Temperature Pulse Rate 73 83 74 Respiratory Rate Blood Pressure 126/73 139/81 144/66 Blood Pressure [Right] O2 Sat by Pulse Oximetry 07/15/20 07/15/20 07/15/20 00:50 01:21 01:50 Temperature Pulse Rate 62 74 59 L Respiratory Rate Blood Pressure 126/70 108/55 101/58 Blood Pressure [Right] O2 Sat by Pulse Oximetry 07/15/20 07/15/20 07/15/20 02:21 02:50 03:45 Temperature Pulse Rate 73 57 L 84 Respiratory Rate Blood Pressure 132/80 111/55 122/80 Blood Pressure [Right] O2 Sat by Pulse Oximetry 07/15/20 07/15/20 07/15/20 03:52 04:50 05:21 Temperature Pulse Rate 74 82 85 Respiratory Rate Blood Pressure 123/69 141/81 153/81 Blood Pressure [Right] O2 Sat by Pulse Oximetry 07/15/20 07/15/20 07/15/20 05:50 06:20 06:57 Temperature 98.3 F Pulse Rate 72 67 77 Respiratory 16 Rate Blood Pressure 125/76 117/69 138/80 Blood Pressure 138/80 [Right] O2 Sat by Pulse 99 Oximetry 07/15/20 07/15/20 07/15/20 07:00 07:05 07:10 Temperature Pulse Rate 76 63 72 Respiratory Rate Blood Pressure Blood Pressure [Right] O2 Sat by Pulse 98 98 98 Oximetry 07/15/20 07/15/20 07/15/20 07:15 07:20 07:25 Temperature Pulse Rate 68 64 92 H Respiratory Rate Blood Pressure 137/76 Blood Pressure [Right] O2 Sat by Pulse 99 99 99 Oximetry 07/15/20 07/15/20 07/15/20 07:30 07:35 07:40 Temperature Pulse Rate 85 76 68 Respiratory Rate Blood Pressure Blood Pressure [Right] O2 Sat by Pulse 98 99 100 Oximetry 07/15/20 07/15/20 07/15/20 07:45 07:50 07:51 Temperature Pulse Rate 63 71 78 Respiratory Rate Blood Pressure 136/83 Blood Pressure [Right] O2 Sat by Pulse 99 99 Oximetry 07/15/20 07/15/20 07/15/20 07:55 08:00 08:05 Temperature Pulse Rate 62 67 57 L Respiratory Rate Blood Pressure Blood Pressure [Right] O2 Sat by Pulse 99 99 98 Oximetry 07/15/20 07/15/20 07/15/20 08:10 08:15 08:20 Temperature Pulse Rate 74 61 64 Respiratory Rate Blood Pressure Blood Pressure [Right] O2 Sat by Pulse 98 99 99 Oximetry 07/15/20 07/15/20 07/15/20 08:21 08:25 08:30 Temperature Pulse Rate 64 61 65 Respiratory Rate Blood Pressure 121/58 Blood Pressure [Right] O2 Sat by Pulse 99 98 Oximetry 07/15/20 07/15/20 07/15/20 08:35 08:40 08:45 Temperature Pulse Rate 80 64 67 Respiratory Rate Blood Pressure Blood Pressure [Right] O2 Sat by Pulse 99 98 98 Oximetry 07/15/20 07/15/20 07/15/20 08:50 08:52 08:55 Temperature Pulse Rate 67 79 74 Respiratory Rate Blood Pressure 144/79 Blood Pressure [Right] O2 Sat by Pulse 98 97 Oximetry 07/15/20 07/15/20 07/15/20 09:00 09:04 09:05 Temperature Pulse Rate 89 64 90 Respiratory Rate Blood Pressure 131/62 131/62 Blood Pressure [Right] O2 Sat by Pulse 100 99 Oximetry 07/15/20 07/15/20 07/15/20 09:10 09:15 09:20 Temperature Pulse Rate 65 63 70 Respiratory Rate Blood Pressure Blood Pressure [Right] O2 Sat by Pulse 99 99 99 Oximetry 07/15/20 07/15/20 07/15/20 09:25 09:37 09:42 Temperature Pulse Rate 72 69 Respiratory Rate Blood Pressure Blood Pressure [Right] O2 Sat by Pulse 99 87 99 Oximetry - Exam Breasts: normal Abdomen: Present: normal appearance, soft, normal bowel sounds Vulva: both: normal Uterus: Present: normal FHR: auscultation normal, category 1 Uterine Contraction Monitor Mode: External Uterine Contraction Frequency (min): irreg with irritabil Uterine Contraction Pattern: Irregular Uterine Tone Measurement Phase: Resting Uterine Contraction Intensity: Mild Extremities: normal - Labs Labs: Abnormal Labs 07/14/20 07/14/20 07/14/20 Unknown Unknown Unknown Hgb 8.6 L Hct 27.0 L MCV 72 L MCH 23 L RDW 18.2 H Lactate Dehydrogenase 271 H U Epithel Cells (Auto) 19.0 H Laboratory Results - last 24 hr 07/14/20 07/14/20 07/14/20 20:31 20:31 20:31 WBC RBC Hgb Hct MCV MCH MCHC RDW Plt Count Creatinine Estimated GFR Uric Acid AST ALT Lactate Dehydrogenase Urine Color Urine Turbidity Urine pH Ur Specific [place] Urine Protein Urine Glucose (UA) Urine Ketones Urine Blood Urine Nitrite Urine Bilirubin Urine Urobilinogen Ur Leukocyte Esterase Urine WBC (Auto) Urine RBC (Auto) U Epithel Cells (Auto) Urine Mucus Syphilis IgG Antibody Nonreactive Hep Bs Antigen HIV 1&2 Antibody Rapid HIV P24 Antigen Rubella IgG Antibody Immune Blood Type O POSITIVE Antibody Screen Negative 07/14/20 07/14/20 07/14/20 20:31 20:31 Unknown WBC RBC Hgb Hct MCV MCH MCHC RDW Plt Count Creatinine Estimated GFR Uric Acid AST ALT Lactate Dehydrogenase Urine Color Yellow Urine Turbidity Cloudy Urine pH 6.0 Ur Specific [place] 1.024 Urine Protein 100 mg/dl Urine Glucose (UA) Neg Urine Ketones Neg Urine Blood Neg Urine Nitrite Neg Urine Bilirubin Neg Urine Urobilinogen < 2.0 Ur Leukocyte Esterase Mod Urine WBC (Auto) 4.0 Urine RBC (Auto) 1.0 U Epithel Cells (Auto) 19.0 H Urine Mucus 3+ Syphilis IgG Antibody Hep Bs Antigen Non-reactive HIV 1&2 Antibody Rapid Non react HIV P24 Antigen Non react Rubella IgG Antibody Blood Type Antibody Screen 07/14/20 07/14/20 Unknown Unknown WBC 9.0 RBC 3.76 Hgb 8.6 L Hct 27.0 L MCV 72 L MCH 23 L MCHC 32 RDW 18.2 H Plt Count 300 Creatinine 0.7 Estimated GFR > 60 Uric Acid 4.9 AST 20 ALT 8 Lactate Dehydrogenase 271 H Urine Color Urine Turbidity Urine pH Ur Specific [place] Urine Protein Urine Glucose (UA) Urine Ketones Urine Blood Urine Nitrite Urine Bilirubin Urine Urobilinogen Ur Leukocyte Esterase Urine WBC (Auto) Urine RBC (Auto) U Epithel Cells (Auto) Urine Mucus Syphilis IgG Antibody Hep Bs Antigen HIV 1&2 Antibody Rapid HIV P24 Antigen Rubella IgG Antibody Blood Type Antibody Screen
[2020-07-15] MEDS ORDERED: PRENATAL VIT27-FE FUMARATE-FOLIC ACID VIT TAB PO SCH (10:00)
[2020-07-15] MEDS ORDERED: FERROUS SULFATE 325 MG TAB PO SCH (10:00)
[2020-07-15] MEDS ORDERED: BETAMET ACET/BETAMET NA PH 6 MG/ML INJ 5 ML MDV IM SCH (11:00)
--- NOTE | 2020-07-15 14:12 | Event Note ---
Date: 07/15/20 Pt resting quietly in bed and denies complaints. She admits to adq FM. VSS, SVE unchanged at /-3. FHR 142 with mod inez, pos accels and no decels. Uterine irritability noted, but no uc at this time. Pt was seen by [facility]. Awaiting report. Dr Eduardo was notified of pt's status.
--- NOTE | 2020-07-15 19:28 | Consultation ---
History of Present Illness Consult date: 07/15/20 Requesting physician: HERRERA SANDERS JR Reason for consult: gestational hypertension History of present illness: 29 yo seen in consultation for newly elevated blood pressures. She was seen for a routine appointment and noted to have elevated blood pressures. She also reports contractions every 7 minutes since yesterday. Labor has been excluded as cervical exam has been unchanged since admission. Her is significant for anemia and obesity. She has no history of prior hypertensive issues. She reports mild headache. She denies any RUQ pain or N/V. She reports good movement. No vaginal bleeding or LOF. Past History Past Medical History: other (anemia) Past Surgical History: no surgical history Family/Genetic History: diabetes, heart disease Social history: no significant social history - Obstetrical History : 5 Para: 3 Medications and Allergies Allergies Allergy/AdvReac Type Severity Reaction Status Date / Time prochlorperazine Allergy Unknown Verified 07/14/20 20:19 [From Compazine] Home Medications Medication Instructions Recorded Confirmed Last Taken Type Pnv 21/Iron Ps,Heme Ppep/Folic 1 each PO QDAY #30 tablet 02/02/14 09/21/14 09/20/14 17:00 Rx [Prefera Ob Tablet] 1 tab Calcium Carbonate [Tums] 200 mg PO Q12H PRN 09/21/14 09/21/14 09/19/14 23:30 History 1 tab Ferrous Sulfate [Iron Supplement] 1 tab PO DAILY 09/21/14 09/21/14 09/14/14 09:00 History Phenylephrine/Dm/Acetaminop/GG 1 tab PO Q4H PRN 09/21/14 09/21/14 09/20/14 19:00 History [Tylenol Cold & Flu Severe Cplt] 1 tab bisacodyL [Dulcolax tab] 1 tab PO DAILY 09/21/14 09/21/14 09/19/14 23:00 History 1 tab Ibuprofen [Motrin 800 MG tab] 800 mg PO Q8HR PRN #30 tablet 05/14/15 Unknown Rx Nitrofurantoin [place]/M-Cryst 100 mg PO Q12HR #14 capsule 10/08/16 Unknown Rx [Macrobid CAP] Ondansetron [Zofran Odt] 4 mg PO Q8HR PRN #10 tab.rapdis 10/08/16 Unknown Rx Vit-Fe Fumar-FA [ 1 tab PO QDAY #30 tablet 10/08/16 Unknown Rx Vitamin] Naproxen [Naprosyn] 500 mg PO BID PRN #20 tablet 11/09/18 Unknown Rx Active Meds: Active Medications Acetaminophen (Acetaminophen 325 Mg Tab) 650 mg PO Q4H PRN PRN Reason: Pain MILD(1-3)/Fever >100.5/MURGUIA Last Admin: 07/15/20 13:56 Dose: 650 mg Documented by: Betamethasone Acet/Betameth SodPhos (Betamet Acet/Betamet Na Ph 6 Mg/Ml Inj 5 Ml Mdv) 12 mg IM Q24H [facility] Stop: 07/16/20 11:01 Last Admin: 07/15/20 10:54 Dose: 12 mg Documented by: Calcium Carbonate/Glycine (Calcium Carbonate 500 Mg Tab Chew) 500 mg PO Q4H PRN PRN Reason: Indigestion Docusate Sodium (Docusate Sodium 100 Mg Cap) 100 mg PO Q12H PRN PRN Reason: Constipation Ferrous Sulfate (Ferrous Sulfate 325 Mg Tab) 325 mg PO BID [facility] Last Admin: 07/15/20 09:03 Dose: 325 mg Documented by: Lactated Ringer's (Lactated Ringers) 1,000 mls @ 125 mls/hr IV DIRECT [facility] Last Admin: 07/15/20 03:43 Dose: 125 mls/hr Documented by: Sodium Chloride (Nacl 0.9% 1000 Ml) 1,000 mls @ 125 mls/hr IV DIRECT PRN PRN Reason: LINE FLUSH Labetalol HCl (Labetalol 100 Mg Tab) 100 mg PO BID [facility] Last Admin: 07/15/20 09:04 Dose: 100 mg Documented by: Multivitamins/Iron/Calcium ( Isi77-De Fumarate-Folic Acid Vit Tab) 1 each PO QDAY [facility] Last Admin: 07/15/20 09:04 Dose: 1 each Documented by: Nitrofurantoin Macrocrystals (Nitrofurantoin Monohyd/M-Cryst 100 Mg Cap) 100 mg PO Q12HR [facility] Ondansetron HCl (Ondansetron 4 Mg/2 Ml Inj) 4 mg IV Q6H PRN PRN Reason: Nausea And Vomiting Last Admin: 07/15/20 05:23 Dose: 4 mg Documented by: Terbutaline Sulfate (Terbutaline 1 Mg/1 Ml Inj) 0.25 mg SUB-Q Q20MIN ANDRE Stop: 07/16/20 17:01 Last Admin: 07/14/20 19:40 Dose: 0.25 mg Documented by: Review of Systems All systems: negative Constitutional: no fever, no chills Cardiovascular: high blood pressure, no chest pain, no palpitations, no dyspnea on exertion Respiratory: no cough, no shortness of breath, no pain on inspiration Breasts: deferred Gastrointestinal: no nausea, no vomiting, no change in bowel habits Genitourinary: no vaginal bleeding, no leakage of fluid, no dysuria Musculoskeletal: no muscle weakness, no myalgias, no limitation of motion Neurological: headaches, no weakness, no parathesias, no syncope Endocrine: no cold intolerance, no heat intolerance Hematologic/Lymphatic: no easy bruising, no easy bleeding - Vital Signs Vital signs: Vital Signs Pulse BP 76 130/85 07/14/20 16:45 07/14/20 16:45 Temp Pulse Resp BP Pulse Ox 98.5 F 77 18 140/79 99 07/15/20 15:50 07/15/20 18:50 07/15/20 15:50 07/15/20 18:50 07/15/20 17:51 Vital Signs - 24 hr 07/14/20 07/14/20 07/14/20 20:06 20:11 20:27 Temperature 98.7 F Pulse Rate 85 94 H 74 Respiratory 12 Rate Blood Pressure Blood Pressure [Left] Blood Pressure 137/69 [Right] O2 Sat by Pulse 100 100 Oximetry 07/14/20 07/14/20 07/14/20 20:50 23:31 23:50 Temperature Pulse Rate 74 73 83 Respiratory Rate Blood Pressure 126/73 139/81 Blood Pressure [Left] Blood Pressure [Right] O2 Sat by Pulse Oximetry 07/15/20 07/15/20 07/15/20 00:20 00:50 01:21 Temperature Pulse Rate 74 62 74 Respiratory Rate Blood Pressure 144/66 126/70 108/55 Blood Pressure [Left] Blood Pressure [Right] O2 Sat by Pulse Oximetry 07/15/20 07/15/20 07/15/20 01:50 02:21 02:50 Temperature Pulse Rate 59 L 73 57 L Respiratory Rate Blood Pressure 101/58 132/80 111/55 Blood Pressure [Left] Blood Pressure [Right] O2 Sat by Pulse Oximetry 07/15/20 07/15/20 07/15/20 03:45 03:52 04:50 Temperature Pulse Rate 84 74 82 Respiratory Rate Blood Pressure 122/80 123/69 141/81 Blood Pressure [Left] Blood Pressure [Right] O2 Sat by Pulse Oximetry 07/15/20 07/15/20 07/15/20 05:21 05:50 06:20 Temperature Pulse Rate 85 72 67 Respiratory Rate Blood Pressure 153/81 125/76 117/69 Blood Pressure [Left] Blood Pressure [Right] O2 Sat by Pulse Oximetry 07/15/20 07/15/20 07/15/20 06:57 07:00 07:05 Temperature 98.3 F Pulse Rate 77 76 63 Respiratory 16 Rate Blood Pressure 138/80 Blood Pressure [Left] Blood Pressure 138/80 [Right] O2 Sat by Pulse 99 98 98 Oximetry 07/15/20 07/15/20 07/15/20 07:10 07:15 07:20 Temperature Pulse Rate 72 68 64 Respiratory Rate Blood Pressure 137/76 Blood Pressure [Left] Blood Pressure [Right] O2 Sat by Pulse 98 99 99 Oximetry 07/15/20 07/15/20 07/15/20 07:25 07:30 07:35 Temperature Pulse Rate 92 H 85 76 Respiratory Rate Blood Pressure Blood Pressure [Left] Blood Pressure [Right] O2 Sat by Pulse 99 98 99 Oximetry 07/15/20 07/15/20 07/15/20 07:40 07:45 07:50 Temperature Pulse Rate 68 63 71 Respiratory Rate Blood Pressure Blood Pressure [Left] Blood Pressure [Right] O2 Sat by Pulse 100 99 99 Oximetry 07/15/20 07/15/20 07/15/20 07:51 07:55 08:00 Temperature Pulse Rate 78 62 67 Respiratory Rate Blood Pressure 136/83 Blood Pressure [Left] Blood Pressure [Right] O2 Sat by Pulse 99 99 Oximetry 07/15/20 07/15/20 07/15/20 08:05 08:10 08:15 Temperature Pulse Rate 57 L 74 61 Respiratory Rate Blood Pressure Blood Pressure [Left] Blood Pressure [Right] O2 Sat by Pulse 98 98 99 Oximetry 03/16/21 03/16/21 03/16/21 08:20 08:21 08:25 Temperature Pulse Rate 64 64 61 Respiratory Rate Blood Pressure 121/58 Blood Pressure [Left] Blood Pressure [Right] O2 Sat by Pulse 99 99 Oximetry 07/15/20 07/15/20 07/15/20 08:30 08:35 08:40 Temperature Pulse Rate 65 80 64 Respiratory Rate Blood Pressure Blood Pressure [Left] Blood Pressure [Right] O2 Sat by Pulse 98 99 98 Oximetry 07/15/20 07/15/20 07/15/20 08:45 08:50 08:52 Temperature Pulse Rate 67 67 79 Respiratory Rate Blood Pressure 144/79 Blood Pressure [Left] Blood Pressure [Right] O2 Sat by Pulse 98 98 Oximetry 07/15/20 07/15/20 07/15/20 08:55 09:00 09:04 Temperature Pulse Rate 74 89 64 Respiratory Rate Blood Pressure 131/62 Blood Pressure [Left] Blood Pressure [Right] O2 Sat by Pulse 97 100 Oximetry 07/15/20 07/15/20 07/15/20 09:05 09:10 09:15 Temperature Pulse Rate 90 65 63 Respiratory Rate Blood Pressure 131/62 Blood Pressure [Left] Blood Pressure [Right] O2 Sat by Pulse 99 99 99 Oximetry 07/15/20 07/15/20 07/15/20 09:20 09:25 09:37 Temperature Pulse Rate 70 72 Respiratory Rate Blood Pressure Blood Pressure [Left] Blood Pressure [Right] O2 Sat by Pulse 99 99 87 Oximetry 07/15/20 07/15/20 07/15/20 09:42 09:47 09:52 Temperature Pulse Rate 69 70 63 Respiratory Rate Blood Pressure 195/84 Blood Pressure [Left] Blood Pressure [Right] O2 Sat by Pulse 99 98 98 Oximetry 07/15/20 07/15/20 07/15/20 09:57 10:02 10:07 Temperature Pulse Rate 78 87 87 Respiratory Rate Blood Pressure 138/63 Blood Pressure [Left] Blood Pressure [Right] O2 Sat by Pulse 99 98 98 Oximetry 07/15/20 07/15/20 07/15/20 10:12 10:17 10:20 Temperature Pulse Rate 69 66 71 Respiratory Rate Blood Pressure 138/67 Blood Pressure [Left] Blood Pressure [Right] O2 Sat by Pulse 99 98 Oximetry 07/15/20 07/15/20 07/15/20 10:22 10:26 10:27 Temperature Pulse Rate 90 84 90 Respiratory Rate Blood Pressure Blood Pressure [Left] Blood Pressure [Right] O2 Sat by Pulse 98 92 99 Oximetry 07/15/20 07/15/20 07/15/20 10:32 10:37 10:42 Temperature Pulse Rate 88 75 77 Respiratory Rate Blood Pressure Blood Pressure [Left] Blood Pressure [Right] O2 Sat by Pulse 99 99 99 Oximetry 07/15/20 07/15/20 07/15/20 10:47 10:50 10:52 Temperature Pulse Rate 84 71 71 Respiratory Rate Blood Pressure 110/55 Blood Pressure [Left] Blood Pressure [Right] O2 Sat by Pulse 99 99 Oximetry 07/15/20 07/15/20 07/15/20 10:57 11:02 11:07 Temperature 98.3 F Pulse Rate 80 85 80 Respiratory 18 Rate Blood Pressure 105/59 Blood Pressure 105/59 [Left] Blood Pressure [Right] O2 Sat by Pulse 99 99 99 Oximetry 07/15/20 07/15/20 07/15/20 11:12 11:17 11:20 Temperature Pulse Rate 63 75 73 Respiratory Rate Blood Pressure 112/57 Blood Pressure [Left] Blood Pressure [Right] O2 Sat by Pulse 99 100 Oximetry 07/15/20 07/15/20 07/15/20 11:22 11:27 11:32 Temperature Pulse Rate 76 75 107 H Respiratory Rate Blood Pressure Blood Pressure [Left] Blood Pressure [Right] O2 Sat by Pulse 100 100 99 Oximetry 07/15/20 07/15/20 07/15/20 11:37 11:42 11:47 Temperature Pulse Rate 66 81 65 Respiratory Rate Blood Pressure Blood Pressure [Left] Blood Pressure [Right] O2 Sat by Pulse 99 99 99 Oximetry 07/15/20 07/15/20 07/15/20 11:50 11:52 11:57 Temperature Pulse Rate 73 71 78 Respiratory Rate Blood Pressure 107/59 Blood Pressure [Left] Blood Pressure [Right] O2 Sat by Pulse 99 99 Oximetry 07/15/20 07/15/20 07/15/20 12:02 12:07 12:12 Temperature Pulse Rate 77 73 75 Respiratory Rate Blood Pressure Blood Pressure [Left] Blood Pressure [Right] O2 Sat by Pulse 99 99 98 Oximetry 07/15/20 07/15/20 07/15/20 12:17 12:20 12:29 Temperature Pulse Rate 81 88 87 Respiratory Rate Blood Pressure 137/65 Blood Pressure [Left] Blood Pressure [Right] O2 Sat by Pulse 99 100 Oximetry 07/15/20 07/15/20 07/15/20 12:34 12:39 12:44 Temperature Pulse Rate 75 83 85 Respiratory Rate Blood Pressure Blood Pressure [Left] Blood Pressure [Right] O2 Sat by Pulse 100 99 99 Oximetry 07/15/20 07/15/20 07/15/20 12:49 12:50 12:54 Temperature Pulse Rate 68 68 75 Respiratory Rate Blood Pressure 121/56 Blood Pressure [Left] Blood Pressure [Right] O2 Sat by Pulse 99 99 Oximetry 07/15/20 07/15/20 07/15/20 12:59 13:08 13:13 Temperature Pulse Rate 86 94 H 82 Respiratory Rate Blood Pressure Blood Pressure [Left] Blood Pressure [Right] O2 Sat by Pulse 99 100 99 Oximetry 07/15/20 07/15/20 07/15/20 13:18 13:21 13:23 Temperature Pulse Rate 72 76 72 Respiratory Rate Blood Pressure 122/76 Blood Pressure [Left] Blood Pressure [Right] O2 Sat by Pulse 100 100 Oximetry 07/15/20 07/15/20 07/15/20 13:28 13:33 13:38 Temperature Pulse Rate 76 90 81 Respiratory Rate Blood Pressure Blood Pressure [Left] Blood Pressure [Right] O2 Sat by Pulse 99 99 99 Oximetry 07/15/20 07/15/20 07/15/20 13:43 13:48 13:52 Temperature Pulse Rate 79 90 80 Respiratory Rate Blood Pressure 131/86 Blood Pressure [Left] Blood Pressure [Right] O2 Sat by Pulse 99 99 Oximetry 07/15/20 07/15/20 07/15/20 13:53 13:56 13:58 Temperature Pulse Rate 87 79 Respiratory 18 Rate Blood Pressure Blood Pressure [Left] Blood Pressure [Right] O2 Sat by Pulse 100 100 Oximetry 07/15/20 07/15/20 07/15/20 14:03 14:08 14:13 Temperature Pulse Rate 85 66 72 Respiratory Rate Blood Pressure Blood Pressure [Left] Blood Pressure [Right] O2 Sat by Pulse 100 100 99 Oximetry 07/15/20 07/15/20 07/15/20 14:18 14:21 14:30 Temperature Pulse Rate 80 75 82 Respiratory Rate Blood Pressure 121/79 Blood Pressure [Left] Blood Pressure [Right] O2 Sat by Pulse 99 100 Oximetry 07/15/20 07/15/20 07/15/20 14:35 14:40 14:45 Temperature Pulse Rate 85 74 84 Respiratory Rate Blood Pressure Blood Pressure [Left] Blood Pressure [Right] O2 Sat by Pulse 99 100 99 Oximetry 07/15/20 07/15/20 07/15/20 14:50 14:55 15:00 Temperature Pulse Rate 72 70 77 Respiratory Rate Blood Pressure 129/71 Blood Pressure [Left] Blood Pressure [Right] O2 Sat by Pulse 99 99 98 Oximetry 07/15/20 07/15/20 07/15/20 15:05 15:10 15:15 Temperature Pulse Rate 75 72 71 Respiratory Rate Blood Pressure Blood Pressure [Left] Blood Pressure [Right] O2 Sat by Pulse 99 98 98 Oximetry 07/15/20 07/15/20 07/15/20 15:20 15:25 15:34 Temperature Pulse Rate 83 84 85 Respiratory Rate Blood Pressure 116/59 Blood Pressure [Left] Blood Pressure [Right] O2 Sat by Pulse 99 99 100 Oximetry 07/15/20 07/15/20 07/15/20 15:39 15:44 15:49 Temperature Pulse Rate 78 89 68 Respiratory Rate Blood Pressure Blood Pressure [Left] Blood Pressure [Right] O2 Sat by Pulse 100 99 100 Oximetry 07/15/20 07/15/20 07/15/20 15:50 15:54 15:59 Temperature 98.5 F Pulse Rate 74 75 75 Respiratory 18 Rate Blood Pressure 128/76 Blood Pressure 128/76 [Left] Blood Pressure [Right] O2 Sat by Pulse 99 99 99 Oximetry 07/15/20 07/15/20 07/15/20 16:04 16:09 16:14 Temperature Pulse Rate 86 72 75 Respiratory Rate Blood Pressure Blood Pressure [Left] Blood Pressure [Right] O2 Sat by Pulse 97 98 98 Oximetry 07/15/20 07/15/20 07/15/20 16:19 16:22 16:24 Temperature Pulse Rate 69 69 73 Respiratory Rate Blood Pressure 128/69 Blood Pressure [Left] Blood Pressure [Right] O2 Sat by Pulse 99 99 Oximetry 07/15/20 07/15/20 07/15/20 16:29 16:34 16:39 Temperature Pulse Rate 71 73 79 Respiratory Rate Blood Pressure Blood Pressure [Left] Blood Pressure [Right] O2 Sat by Pulse 98 97 97 Oximetry 07/15/20 07/15/20 07/15/20 16:44 16:49 16:50 Temperature Pulse Rate 81 84 83 Respiratory Rate Blood Pressure 102/54 Blood Pressure [Left] Blood Pressure [Right] O2 Sat by Pulse 97 97 Oximetry 07/15/20 07/15/20 07/15/20 16:54 16:59 17:04 Temperature Pulse Rate 85 107 H 71 Respiratory Rate Blood Pressure Blood Pressure [Left] Blood Pressure [Right] O2 Sat by Pulse 97 97 98 Oximetry 07/15/20 07/15/20 07/15/20 17:09 17:14 17:19 Temperature Pulse Rate 77 69 79 Respiratory Rate Blood Pressure Blood Pressure [Left] Blood Pressure [Right] O2 Sat by Pulse 98 99 98 Oximetry 07/15/20 07/15/20 07/15/20 17:20 17:24 17:29 Temperature Pulse Rate 79 95 H 97 H Respiratory Rate Blood Pressure 110/67 Blood Pressure [Left] Blood Pressure [Right] O2 Sat by Pulse 100 99 Oximetry 07/15/20 07/15/20 07/15/20 17:46 17:51 17:52 Temperature Pulse Rate 81 78 74 Respiratory Rate Blood Pressure 129/68 Blood Pressure [Left] Blood Pressure [Right] O2 Sat by Pulse 99 99 Oximetry 07/15/20 07/15/20 07/15/20 18:21 18:50 19:50 Temperature Pulse Rate 71 77 90 Respiratory Rate Blood Pressure 130/70 140/79 124/74 Blood Pressure [Left] Blood Pressure [Right] O2 Sat by Pulse Oximetry - Physical Exam Breasts: Positive: deferred Cardiovascular: Regular rate Lungs: Positive: Clear to auscultation Abdomen: Positive: other (Gravid, NT) Extremities: Positive: normal Deep Tendon Reflex Grade: Normal +2 - Obstetrical FHR: category 1 Uterine Contraction Pattern: Irregular Results Result Diagrams: 07/14/20 Unknown 07/14/20 Unknown All other labs normal. Laboratory Tests 07/14/20 07/14/20 07/14/20 20:31 20:31 20:31 WBC RBC Hgb Hct MCV MCH MCHC RDW Plt Count Creatinine Estimated GFR Uric Acid AST ALT Lactate Dehydrogenase Urine Color Urine Turbidity Urine pH Ur Specific Ary Urine Protein Urine Glucose (UA) Urine Ketones Urine Blood Urine Nitrite Urine Bilirubin Urine Urobilinogen Ur Leukocyte Esterase Urine WBC (Auto) Urine RBC (Auto) U Epithel Cells (Auto) Urine Mucus Syphilis IgG Antibody Nonreactive Coronavirus (PCR) Hep Bs Antigen HIV 1&2 Antibody Rapid HIV P24 Antigen Rubella IgG Antibody Immune Blood Type O POSITIVE Antibody Screen Negative 07/14/20 07/14/20 07/14/20 20:31 20:31 Unknown WBC RBC Hgb Hct MCV MCH MCHC RDW Plt Count Creatinine Estimated GFR Uric Acid AST ALT Lactate Dehydrogenase Urine Color Yellow Urine Turbidity Cloudy Urine pH 6.0 Ur Specific Ary 1.024 Urine Protein 100 mg/dl Urine Glucose (UA) Neg Urine Ketones Neg Urine Blood Neg Urine Nitrite Neg Urine Bilirubin Neg Urine Urobilinogen < 2.0 Ur Leukocyte Esterase Mod Urine WBC (Auto) 4.0 Urine RBC (Auto) 1.0 U Epithel Cells (Auto) 19.0 H Urine Mucus 3+ Syphilis IgG Antibody Coronavirus (PCR) Hep Bs Antigen Non-reactive HIV 1&2 Antibody Rapid Non react HIV P24 Antigen Non react Rubella IgG Antibody Blood Type Antibody Screen 07/14/20 07/14/20 07/15/20 Unknown Unknown 09:00 WBC 9.0 RBC 3.76 Hgb 8.6 L Hct 27.0 L MCV 72 L MCH 23 L MCHC 32 RDW 18.2 H Plt Count 300 Creatinine 0.7 Estimated GFR > 60 Uric Acid 4.9 AST 20 ALT 8 Lactate Dehydrogenase 271 H Urine Color Urine Turbidity Urine pH Ur Specific Ary Urine Protein Urine Glucose (UA) Urine Ketones Urine Blood Urine Nitrite Urine Bilirubin Urine Urobilinogen Ur Leukocyte Esterase Urine WBC (Auto) Urine RBC (Auto) U Epithel Cells (Auto) Urine Mucus Syphilis IgG Antibody Coronavirus (PCR) Negative Hep Bs Antigen HIV 1&2 Antibody Rapid HIV P24 Antigen Rubella IgG Antibody Blood Type Antibody Screen Assessment and Plan - Patient Problems (1) Elevated blood pressure affecting in third trimester, antepartum Current Visit: Yes Status: Acute Plan to address problem: 1. Awaiting completion of 24 hour urine protein 2. Continue blood pressure monitoring for development of severe range pressures 3. Symptomatic management of headache with tylenol prn. May also use compazine and benadryl for refractory headache overnight. 4. If 24 hour urine protein diagnostic for pre-eclampsia and no severe features overnight, may discharge home with weekly labs, twice weekly surveillance, and delivery at 37 weeks. 5. If 24 hour urine protein not diagnostic for preeclampsia and no severe features overnight, may discharge home with weekly labs and weekly surveillance with delivery at 38 weeks. 6. If any persistent severe features overnight including severe range blood pressures requiring IV treatment, persistent refractory headache, development of abnormal labs, or nonreassuring status move toward delivery at current gestational age (> 34 weeks)
[2020-07-15 20:51] VITALS: BP 130/68
[2020-07-15 21:28] LABS: Creatinine,Urine 94.8 mg/dL (0.1-20.0)
[2020-07-15 21:29] LABS: Creatinine 24 Hour,Urine 1.2 (0.8-2.8)
[2020-07-15] MEDS ORDERED: NITROFURANTOIN MONOHYD/M-CRYST 100 MG CAP PO SCH (22:00)
== END 2020-07-15 21:50 | disposition home or self-care (01) | DRG 781 ==
LOC: TRG 16:10 → APU 16:11 → TRG 19:58 → LD 19:58 → OBSVTOIN 07-15 13:59
PROVIDERS: ADMIT Obstetrics & Gynecology; ATTEND Obstetrics & Gynecology
DX: O23.13 Infections of bladder in pregnancy, third trimester (principal); O99.013 Anemia complicating pregnancy, third trimester; D64.9 Anemia, unspecified; R03.0 Elevated blood-pressure reading, without diagnosis of hypertension; Z20.822 Contact with and (suspected) exposure to COVID-19; Z82.49 Family history of ischemic heart disease and other diseases of the circulatory system; Z83.3 Family history of diabetes mellitus; Z3A.35 35 weeks gestation of pregnancy
CPT/HCPCS: 36415; 59025; 81001; 82565; 82570; 83615; 84156; 84450; 84460; 84550; 85027; 86592; 86706; 86762; 86850; 86900; 86901; 87086; 87806; 96360; 96361; 96372; G0378; J0696; J0702; J2405; J3105; J7120; U0003

== ENCOUNTER 2020-07-16 10:20 | Outpatient (CLI) | payer MEDICAID ==
[2020-07-16] MEDS ORDERED: BETAMET ACET/BETAMET NA PH 6 MG/ML INJ 5 ML MDV IM SCH (11:00)
[2020-07-16 11:27] VITALS: BP 142/67
== END 2020-07-16 11:30 | disposition home or self-care (01) ==
LOC: TRG 10:20 → APU 10:22 → TRG 11:30
PROVIDERS: ATTEND Obstetrics & Gynecology
DX: O47.03 False labor before 37 completed weeks of gestation, third trimester (principal); O16.3 Unspecified maternal hypertension, third trimester; O99.013 Anemia complicating pregnancy, third trimester; Z3A.35 35 weeks gestation of pregnancy
CPT/HCPCS: 96372; J0702

== ENCOUNTER 2021-08-02 15:57 | Emergency (ER) | payer MEDICAID | END 2021-08-02 16:54 | disposition left against medical advice (07) | LOC: ED 15:57 | DX: R68.84 Jaw pain (principal); H92.09 Otalgia, unspecified ear; Z53.21 Procedure and treatment not carried out due to patient leaving prior to being seen by health care provider ==